=== PATIENT | female | born 1970 | race Two or more races ===

== ENCOUNTER 2019-07-17 09:15 | Emergency (ER) | payer OTHER ==
[~2019-07-17] VITALS: Ht 162.6 cm; Wt 81.6 kg
[2019-07-17] MEDS ORDERED: HYDROCHLOROTHIA25 MG PO (09:34)
== END 2019-07-17 17:30 | disposition home or self-care (01) ==
LOC: ER 09:15
DX: R10.32 Left lower quadrant pain (principal)